=== PATIENT | female | born 2000 | race Caucasian/White ===

== ENCOUNTER 2022-07-30 10:50 | Day surgery (SDC) | payer MEDICAID ==
[2022-07-30 11:11] VITALS: BMI 41.8
[2022-07-30] MEDS ORDERED: hydrALAZINE 20 MG/ML VIAL SLOW IVP PRN (11:26)
[2022-07-30 11:41] LABS: Bilirubin Neg (Negative); Blood, Urine Negative (Negative); Clarity Cloudy (Clear); Glucose, Urine (Dipstick) Normal (Negative); Ketone, Urine 15 mg/dL (Negative); Leukocyte Negative (Negative); Nitrite Negative (Negative); Protein, Urine (Dipstick) Negative (Neg-Trace); Specific Gravity, Urine 1.015 (1.005-1.030); Urobilinogen Normal mg/dL (Less than 2)
[2022-07-30 11:51] LABS: Bacteria/HPF 2+ HPF (None Seen); CAUTI Indications for Culture Pregnancy; RBC/HPF 0-3 HPF (0-3); WBC/HPF 0-3 HPF (0-3)
[2022-07-30 11:53] LABS: Urine Culture Reflex Yes Yes
[2022-07-30 20:43] LABS: Chlamydia by PCR Not Detected (NotDetected); GC by PCR Not Detected (NotDetected)
== END 2022-07-30 12:18 | disposition home or self-care (01) ==
LOC: CSHLD/OP 10:50
PROVIDERS: ATTEND Obstetrics & Gynecology
DX: O26.892 Other specified pregnancy related conditions, second trimester (principal); R10.9 Unspecified abdominal pain; Z3A.21 21 weeks gestation of pregnancy
CPT/HCPCS: 81001; 87086; 87480; 87491; 87510; 87591; 87660; 99283